=== PATIENT | female | born 1990 | race Caucasian/White ===

== ENCOUNTER → 2016-08-15 | Outpatient (CLI) | payer MEDICAID ==
[~2016-08-15] MED LIST: ALBU0.63 AEROSOL; DOCU240C40 PO; HYDR-4246 PO; IBUP-1547 PO; IRON150C5 PO
== END ==
LOC: EDSTATUS 07:30 → OBOBS 08:00
PROVIDERS: ATTEND Obstetrics & Gynecology
DX: Z53.9 Procedure and treatment not carried out, unspecified reason (principal)

== ENCOUNTER → 2016-10-16 | Outpatient (CLI) | payer MEDICAID ==
--- NOTE | 2016-10-16 11:09 | DI ---
Indication: ITS.REASON: M54.5 LOW BACK PAIN PROCEDURE: LUMBAR SPINE COMP W/O BEND: With oblique views: Five views Encounter: Initial Comparison: None Findings: The vertebral body heights and the alignments appear relatively well preserved. There is no subluxation. No definite pars defect on the oblique views. There is no significant posterior facet arthropathy. No soft tissue mass or abnormal calcification. Impression: No evidence for fracture or spondylolisthesis. No definite spondylolysis. .
== END ==
LOC: LAB 10:25
PROVIDERS: ATTEND Nurse Practitioner Family
DX: M54.5 Low back pain (principal)